=== PATIENT | male | born 1995 | race Caucasian/White ===

== ENCOUNTER 2017-04-16 18:47 | Emergency (ER) | payer OTHER ==
--- NOTE | ~2017-04-16 | CT52 ---
[facility] A Service of [facility] & [facility] RADIOLOGY TEXT RESULTS PATIENT: RAFAEL KING LOCATION: CFTX : 95 UNIT #: [id number] AGE: [address]: Jacob Vance SEX: M ORDER DR: [id number] [facility] [address] [place], [place] [address] [id number] MR#: [id number] #: [id number] NAME: RAFAEL KING : 1995 SEX: M STUDY DATE/TIME: 04/16/2017 20:34 UNIT: [facility] ROOM: STUDY DESCRIPTION: CT Cervical Spine Wo Cont Attending Physician: Jacob Vance P.A.-C. Ordering Physician: Jacob Vance P.A.-C. Primary Care Physician: No Primary Care Physician MEDICAL IMAGING REPORT This report is preliminary unless electronic signature is present EXAM CT of cervical spine without. HISTORY Neck pain. Left neck pain, shoulder pain, injured at work 04/16/2017. Pain is posterior. COMMENT CT of the cervical spine performed in the axial plane without contrast followed by sagittal and coronal reconstructed images. This CT exam was performed with one or more of the following radiation dose reduction techniques: automatic exposure control, adjustment of mA and/or kV according to patient size, and iterative reconstruction. COMPARISON There is no comparison study of the cervical spine. FINDINGS Sagittal alignment is normal. There is a chronic calcification at the anterior aspect of C5, directed cephalad consistent with some calcification of the anterior longitudinal ligament. There is probably subtle loss of intervertebral disc height at C4-5 and I suspect some remote injury or degenerative disease at this level. If there is clinical concern for superimposed degenerative disc disease, this is best pursued with MRI. CT scanning is relatively insensitive for soft tissue abnormalities. There is nothing to suggest an acute fracture or traumatic malalignment. Type 4 injury not indicated in the history. There is no prevertebral fluid collection appreciated. There is no bony canal stenosis or foraminal impingement appreciated. IMPRESSION 1. No acute fracture or traumatic malalignment is suspected of the cervical spine. [facility] A Service of [facility] & [facility] RADIOLOGY TEXT RESULTS PATIENT: RAFAEL KING LOCATION: CFTX : 95 UNIT #: [id number] AGE: [address]: Jacob Vance PAC SEX: M ORDER DR: 2. There is suspicion for some degenerative disc disease at the C4-5 level with some mild loss of intervertebral disc height. There is calcification associated with the anterior aspect of the C5 vertebral body probably involving the anterior longitudinal ligament which suggests chronic degenerative disc changes at this level. If more information is needed, the patient is best assessed further with followup MRI of the cervical spine since the CT scanning is relatively limited for assessment of soft disc abnormalities when compared to MRI. STAT * RESULT Dictated by... Hilda Winkler M.D. THIS IS AN ELECTRONICALLY VERIFIED REPORT Hilda Winkler M.D. at 04/16/2017 10:09 PM Delilah TD: 04/16/2017 21:20 JOB #: [id number] MEDICAL IMAGING REPORT Page 1 of 1 COPY
--- NOTE | ~2017-04-16 | CR229 ---
[facility] A Service of [facility] & [facility] RADIOLOGY TEXT RESULTS PATIENT: RAFAEL KING LOCATION: CFTX : 95 UNIT #: [id number] AGE: [address]: Jacob Vance SEX: M ORDER DR: [id number] [facility] [address] [place], [place] [address] [id number] E MR#: [id number] Acc #: [id number] NAME: RAFAEL KING : 1995 SEX: M STUDY DATE/TIME: 04/16/2017 19:44 UNIT: [facility] ROOM: STUDY DESCRIPTION: CR Shoulder Min 2 View Lt Attending Physician: Jacob Vance P.A.-C. Ordering Physician: Jacob Vance P.A.-C. Primary Care Physician: Primary Care Physician No MEDICAL IMAGING REPORT This report is preliminary unless electronic signature is present EXAM Shoulder left HISTORY Left shoulder pain, trauma. Fell off a trampoline today. FINDINGS 4 films of the left shoulder submitted for review. No previous. No acute fracture, dislocation or radiopaque foreign body suspected. IMPRESSION Negative. Dictated by... Hilda Winkler M.D. THIS IS AN ELECTRONICALLY VERIFIED REPORT Hilda Winkler M.D. at 04/17/2017 7:57 AM ZOHRA/usman TD: 04/17/2017 05:21 JOB #: [id number] MEDICAL IMAGING REPORT Page 1 of 1 COPY
[~2017-04-16 18:47] MED LIST: FLEXERIL10 MG PO; NO MEDICATIONS; VOLTAREN75 MG PO
== END 2017-04-16 21:45 | disposition home or self-care (01) ==
LOC: CFTX 18:47 → CED 18:47 → CFTX 19:42
DX: S16.1XXA Strain of muscle, fascia and tendon at neck level, initial encounter (principal); M54.12 Radiculopathy, cervical region; W19.XXXA Unspecified fall, initial encounter; Y92.69 Other specified industrial and construction area as the place of occurrence of the external cause; Y99.0 Civilian activity done for income or pay
CPT/HCPCS: 72125; 73030; 99284